=== PATIENT | male | born 1985 | race Caucasian/White ===

== ENCOUNTER 2016-11-19 12:31 | Emergency (ER) | payer SELFPAY ==
[~2016-11-19] VITALS: Ht 180.3 cm; Wt 70.9 kg
[2016-11-19 12:44] VITALS: TEMP 37.1; Ht 180.3 cm; Wt 70.9 kg
[2016-11-19] MEDS ORDERED: SODIUM CHLORIDE 0.9% 1000ML 2,000 ML IV STA (13:57)
[2016-11-19] MEDS ORDERED: KETOROLAC TROMETHAMINE 30 MG/ML VIAL IV STA (13:57)
[2016-11-19 14:10] LABS: BASO % 0.3 %; BASO ABS # 0.02 K/uL (0-0.2); COMPLETE YES; EOS % 1.3 %; HEMATOCRIT 48.4 % (42-52); IG% 0.4 %; LYMPH ABS # 1.78 K/uL (1.2-3.4); MEAN CELL VOLUME 82.2 fL (80-100); MEAN CORPUSCULAR HGB CONC 32.9 g/dl (32-36); MEAN PLATELET VOLUME 11.8 fL (7.4-10.4); PLATELET COUNT 195 K/uL (130-400); RED BLOOD COUNT 5.89 M/uL (4.7-6.1); WHITE BLOOD COUNT 7.12 K/uL (4.8-10.8)
[2016-11-19 14:20] LABS: BUN/CREATININE RATIO 13.9 (10-20); CALCIUM 9.4 mg/dl (8.5-10.1); CREATININE 1.1 mg/dl (0.60-1.40); POTASSIUM 4.3 mmol/L (3.5-5.1)
[2016-11-19 14:23] LABS: URINE APPEARANCE CLEAR (CLEAR); URINE BILIRUBIN NEG (NEG); URINE COLOR YELLOW; URINE NITRITE NEG (NEG); URINE PH 7.5 (4.5-7.5); URINE SPECIFIC GRAVITY 1.012 (1.000-1.030); UROBILINOGEN NEG (NEG)
[2016-11-19 14:24] LABS: MANUAL MICROSCOPIC REQUIRED? NO; REVIEW REQ? NO
[2016-11-19 14:30] LABS: ALB/GLOB RATIO 1.4 (0.9-2)
[2016-11-19] MEDS ORDERED: OPTIRAY 320 IV PRN (14:45)
--- NOTE | 2016-11-19 15:14 | DIAGNOSTIC IMAGING REPORT ---
ABDOMEN AND PELVIS CT WITH IV CONTRAST CT DOSE: 433.04 mGy.cm HISTORY: Flank pain bilateral lower abdominal pain, left low back pain TECHNIQUE: Multiaxial CT images of the abdomen and pelvis were performed following the use of intravenous contrast. COMPARISON STUDY: None. FINDINGS: Lung bases are clear. Liver is unremarkable. Spleen is uniform. Pancreas appears to be unremarkable throughout. Kidneys enhance appropriately. There is no evidence for renal hydronephrosis. The adrenal glands are within normal limits. Gallbladder is negative for distention. There are several small retroperitoneal nodes measuring up to 6 mm. These are not considered significant. Bowel pattern of the a sending colon suggests a slight degree of wall thickening with a trace amount of pericolonic infiltrative change. This extends to the hepatic flexure and to a lesser extent proximal transverse colonic region. Descending colon appears to be unremarkable. There is no evidence for abscess collection or obstruction. The appendix is normal. Bladder is midline. There are several small reactive pelvic nodes none of which exceed 8 mm. IMPRESSION: 1. Findings consistent with a mild nonspecific colitis involving a sending and proximal transverse colon. 2. No evidence for abscess collection or obstruction. 3. Normal appendix. Electronically signed by: Omar Quiros M.D. 11/19/2016 3:12 PM Dictated Date/Time: 11/19/2016 3:01 PM
[2016-11-19 15:54] VITALS: BP 112/70; PULSE 44; O2SAT 99
--- NOTE | 2016-11-19 16:13 | EMERGENCY ROOM VISIT NOTE ---
ED Visit Note First contact with patient: 13:34 CHIEF COMPLAINT: Lower abdominal pain radiating to the left low back 2 days HISTORY OF PRESENT ILLNESS: Patient is a 31-year-old white male who presents to the emergency department for evaluation of abdominal pain. He states that he developed some abdominal pain across the lower abdomen 2 days ago. He states that the pain has become more localized to the left lower quadrant and wrapping around to the left low back. He states that that left-sided abdominal pain is constant and dull, but occasionally becomes sharp and radiates across the abdomen. The pain comes in waves that he states double him over. He has tried Aleve, Pepto-Bismol and Tylenol for his symptoms. His bowel movements have been normal, he denies melena, hematochezia or hematemesis. No diarrhea. He denies any dysuria, frequency, urgency or hematuria. He has not had a fever. He denies any nausea or vomiting. He reports a remote history of kidney stones but states that he was not seen by a provider at that time. REVIEW OF SYSTEMS: Review of systems as per HPI. All other systems reviewed were negative. 10 systems reviewed. PMH: Electronic medical records are reviewed and summarized as above/below. See Problem List.. SOCIAL HISTORY: Patient lives at home. Smoker. PHYSICAL EXAM: Vital Signs: Reviewed Nurse's notes. CONSTITUTIONAL: Patient is well-appearing 31-year-old white male who is awake and alert and in no acute distress. EYES: Pupils equal, round, reactive to light and accommodation. EOMs intact without nystagmus. Sclera are anicteric. ENT: Tympanic membranes intact, with normal landmarks. External canals are clear. Oral and nasopharynx are clear. Mucous membranes are moist, no lesions , tongue and gums appear normal. NECK: Supple without lymphadenopathy. No thyromegaly. No meningeal signs. Full active range of motion without discomfort. CARDIOVASCULAR: Regular rate and rhythm, with normal S1 and S2, no murmur or gallop or rub is heard. No carotid bruits auscultated. No JVD. Peripheral pulses easily palpable. RESPIRATORY: Breath sounds equal and clear to auscultation without wheezes, rales, or rhonchi heard. Full and equal chest expansion without accessory muscle use or retractions. ABDOMEN: Bowel sounds are present. Abdomen is soft, scaphoid, nondistended. He has tenderness to percussion and palpation in the left lower quadrant, left upper quadrant and in the right lower quadrant, no guarding, rebound or rigidity. No CVA tenderness. INTEGUMENTARY: No lesions or rash, normal skin turgor. LYMPH: No lymphadenopathy. EMERGENCY DEPARTMENT COURSE: The patient was seen and assessed as above. He has no old records in our facility for review. IV access was obtained and he was hydrated with normal saline solution. He was medicated with Toradol 30 mg IV. CBC with differential, CMP, lipase and urinalysis were collected. Electrolytes, renal function, liver functions and lipase are all within normal limits. Urinalysis is clear without signs of blood or infection. Laboratory studies revealed a normal white count at 7100, H&H is normal. No left shift. Electrolytes, liver functions and lipase are within normal limits. Urinalysis is clear, without signs of infection or blood. CT scan of the abdomen and pelvis with IV contrast was ordered. Findings were consistent with a mild, nonspecific colitis involving the ascending and proximal transverse colon. There is no evidence for abscess collection or obstruction. Appendix was visualized and was normal. Kidneys enhance appropriately there was no evidence for hydronephrosis. The patient was reassessed. All laboratory and diagnostic imaging studies were discussed with him. Differential diagnoses entertained included UTI, pyelonephritis, renal colic, diverticulitis, bowel obstruction, perforation, appendicitis, infectious versus inflammatory colitis, among others. Supportive care measures were discussed. The patient was encouraged to follow a clear liquid/bland diet, and advance as tolerated. He was given a small prescription for tramadol to use for discomfort, otherwise should use acetaminophen. He was instructed to return to the emergency department for worsening symptoms, including but not limited to worsening abdominal pain, vomiting or fever. The patient was discharged to home into the care of family in good condition. He rated his discomfort a 5/10 [address] discharge. ABDOMEN AND PELVIS CT WITH IV CONTRAST CT DOSE: 433.04 mGy.cm HISTORY: Flank pain bilateral lower abdominal pain, left low back pain TECHNIQUE: Multiaxial CT images of the abdomen and pelvis were performed following the use of intravenous contrast. COMPARISON STUDY: None. FINDINGS: Lung bases are clear. Liver is unremarkable. Spleen is uniform. Pancreas appears to be unremarkable throughout. Kidneys enhance appropriately. There is no evidence for renal hydronephrosis. The adrenal glands are within normal limits. Gallbladder is negative for distention. There are several small retroperitoneal nodes measuring up to 6 mm. These are not considered significant. Bowel pattern of the a sending colon suggests a slight degree of wall thickening with a trace amount of pericolonic infiltrative change. This extends to the hepatic flexure and to a lesser extent proximal transverse colonic region. Descending colon appears to be unremarkable. There is no evidence for abscess collection or obstruction. The appendix is normal. Bladder is midline. There are several small reactive pelvic nodes none of which exceed 8 mm. IMPRESSION: 1. Findings consistent with a mild nonspecific colitis involving a sending and proximal transverse colon. 2. No evidence for abscess collection or obstruction. 3. Normal appendix. Problem List Medical Problems: (1) Kidney stone Status: Chronic Current/Historical Medications Scheduled PRN Tramadol (Ultram), 1-2 TAB PO Q4H PRN for Pain Allergies Coded Allergies: Pea (Unverified Allergy, Unknown, RASH, 11/19/16) Vital Signs Date Time Temp Pulse Resp B/P Pulse Ox O2 Delivery O2 Flow Rate FiO2 11/19/16 15:54 44 16 112/70 99 Room Air 11/19/16 14:10 42 18 106/55 99 Room Air 11/19/16 12:44 37.1 59 18 118/84 100 Room Air Laboratory Results 11/19/16 12:56 Red Blood Count 5.89, Mean Corpuscular Volume 82.2, Mean Corpuscular Hemoglobin 27.0, Mean Corpuscular Hemoglobin Concent 32.9, Mean Platelet Volume 11.8, Neutrophils (%) (Auto) 65.0, Lymphocytes (%) (Auto) 25.0, Monocytes (%) (Auto) 8.0, Eosinophils (%) (Auto) 1.3, Basophils (%) (Auto) 0.3, Neutrophils # (Auto) 4.63, Lymphocytes # (Auto) 1.78, Monocytes # (Auto) 0.57, Eosinophils # (Auto) 0.09, Basophils # (Auto) 0.02 11/19/16 12:56 Test 11/19/16 12:55 11/19/16 12:56 Urine Color YELLOW Urine Appearance CLEAR (CLEAR) Urine pH 7.5 (4.5-7.5) Urine Specific [place] 1.012 (1.000-1.030) Urine Protein NEG (NEG) Urine Glucose (UA) NEG (NEG) Urine Ketones NEG (NEG) Urine Occult Blood NEG (NEG) Urine Nitrite NEG (NEG) Urine Bilirubin NEG (NEG) Urine Urobilinogen NEG (NEG) Urine Leukocyte Esterase NEG (NEG) White Blood Count 7.12 K/uL (4.8-10.8) Red Blood Count 5.89 M/uL (4.7-6.1) Hemoglobin 15.9 g/dL (14.0-18.0) Hematocrit 48.4 % (42-52) Mean Corpuscular Volume 82.2 fL (80-100) Mean Corpuscular Hemoglobin 27.0 pg (25-34) Mean Corpuscular Hemoglobin Concent 32.9 g/dl (32-36) Platelet Count 195 K/uL (130-400) Mean Platelet Volume 11.8 fL (7.4-10.4) Neutrophils (%) (Auto) 65.0 % Lymphocytes (%) (Auto) 25.0 % Monocytes (%) (Auto) 8.0 % Eosinophils (%) (Auto) 1.3 % Basophils (%) (Auto) 0.3 % Neutrophils # (Auto) 4.63 K/uL (1.4-6.5) Lymphocytes # (Auto) 1.78 K/uL (1.2-3.4) Monocytes # (Auto) 0.57 K/uL (0.11-0.59) Eosinophils # (Auto) 0.09 K/uL (0-0.5) Basophils # (Auto) 0.02 K/uL (0-0.2) RDW Standard Deviation 40.4 fL (36.4-46.3) RDW Coefficient of Variation 13.4 % (11.5-14.5) Immature Granulocyte % (Auto) 0.4 % Immature Granulocyte # (Auto) 0.03 K/uL (0.00-0.02) Anion Gap 6.0 mmol/L (3-11) Est Creatinine Clear Calc Drug Dose 97.6 ml/min Estimated GFR () 103.1 Estimated GFR (Non- 89.0 BUN/Creatinine Ratio 13.9 (10-20) Calcium Level 9.4 mg/dl (8.5-10.1) Total Bilirubin 0.5 mg/dl (0.2-1) Aspartate Amino Transf (AST/SGOT) 12 U/L (15-37) Alanine Aminotransferase (ALT/SGPT) 29 U/L (12-78) Alkaline Phosphatase 99 U/L (45-117) Total Protein 8.0 gm/dl (6.4-8.2) Albumin 4.6 gm/dl (3.4-5.0) Globulin 3.4 gm/dl (2.5-4.0) Albumin/Globulin Ratio 1.4 (0.9-2) Lipase 203 U/L (73-393) Medications Administered Medications (Trade) Dose Ordered Sig/Madhu Route Start Time Stop Time Status Last Admin Dose Admin Sodium Chloride (Nss 1000ml) 2,000 ml @ 999 mls/hr Q2H1M STAT IV 11/19/16 13:57 11/19/16 15:57 DC 11/19/16 14:08 999 MLS/HR Ketorolac Tromethamine (Toradol Inj) 30 mg NOW STAT IV 11/19/16 13:57 11/19/16 13:58 DC 11/19/16 14:09 30 MG Departure Information Impression Primary Impression: Colitis Prescriptions Tramadol (Ultram) 50 Mg Tab 1-2 TAB PO Q4H Y for Pain, #20 TAB For Initial Treatment Prov: Lissette Begum PA 11/19/16 Referrals No Doctor, Assigned (PCP) Patient Instructions [facility] Additional Instructions Tramadol (Ultram) 50mg: Take 1-2 pills every four hours for breakthrough pain. Avoid alcohol, operating machinery or dangerous equipment, working on ladders or roofs, DRIVING, or situations where being under the influence may be dangerous. It is recommended to use an [id number] stool softener such as Colace, 100mg twice daily while taking this medication to avoid constipation. Acetaminophen(Tylenol) may be used for fever or pain. Use 1000mg every eight hours as needed. Avoid using more than 3000mg in a 24 hour period. This is available over the counter. Rest and drink plenty of fluids as tolerated. Slow sips of water or sports drinks are recommended instead of large amounts all at once. Continue current medications. Once your stomach is settled start with a clear liquid diet (jello, soup broth, etc.) and then advance as tolerated. You should avoid full, heavy meals for about 24 hrs from the time your symptoms resolved. Return to the ER immediately for worsening or persistent abdominal pain, vomiting, fevers, chest pains, difficulty breathing, black or bloody stools, worsening of your condition, or as needed. Return to the ER or follow up with your primary provider in 8-12 hours for a recheck of your current condition. Follow up with your primary physician in 1-2 days for a recheck of your current condition.
[2016-11-19] MEDS ORDERED: TRAM-10 PO (16:20)
== END 2016-11-19 16:21 | disposition home or self-care (01) ==
LOC: C.EDB 12:33 → C.EDA 16:21
DX: K52.9 Noninfective gastroenteritis and colitis, unspecified (principal); F17.210 Nicotine dependence, cigarettes, uncomplicated; Z87.442 Personal history of urinary calculi